=== PATIENT | female | born 1980 | race Caucasian/White ===

== ENCOUNTER → 2016-12-08 | Outpatient (CLI) | payer BC | END | disposition home or self-care (01) | LOC: LABWHC1 09:39 | PROVIDERS: ATTEND Obstetrics & Gynecology | DX: Z13.1 Encounter for screening for diabetes mellitus (principal); Z13.220 Encounter for screening for lipoid disorders | CPT/HCPCS: 36415; 80061; 82947; 84439; 84443 ==

== ENCOUNTER 2019-02-10 08:47 | Day surgery (SDC) | payer BC ==
[2019-02-07 12:31] VITALS: BMI 25.7
[~2019-02-10 08:47] MED LIST: LACTATED RINGERS 1,000 ML IV SCH; LIDOCAINE 1% 20 ML VIAL (10MG/ML) FOR IV START INTRADERMA PRN
[2019-02-10 09:43] VITALS: RESP 16; TEMP 98.1
[2019-02-10] MEDS ORDERED: PROPOFOL 10 MG/ML 20 ML VIAL IV ONE (09:56)
[2019-02-10] MEDS ORDERED: LIDOCAINE 1% INJ 10MG/ML (20 ML MDV) ONE (09:56)
--- NOTE | 2019-02-10 10:29 | P.PCN ---
Date of Procedure: 02/10/19 Procedure(s) Performed: BRIEF HISTORY: Patient is a 38-year-old pleasant female, scheduled for an elective colonoscopy as a part of screening for colorectal neoplasia. She has strong family history of colon cancer diagnosed in her paternal and maternal grandmother as well as first cousin at age 30. Her mother had colon polyps. PROCEDURE PERFORMED: Colonoscopy. PREOPERATIVE DIAGNOSIS: Screening for colon cancer/family history of colon cancer. IV sedation per Anesthesia. PROCEDURE: After informed consent was obtained, the patient, was brought into the endoscopy unit. IV sedation was administered by Anesthesia under continuous monitoring. Digital rectal examination was normal. Initially the Olympus CF-160 flexible video colonoscope was then inserted in the rectum, gradually advanced into the cecum without any difficulty. Careful examination was performed as the scope was gradually being withdrawn. Ileocecal valve and the appendiceal orifice were visualized and appeared normal. Prep was excellent. Mucosa of the cecum, ascending colon, transverse colon, descending colon, sigmoid colon, and rectum appeared normal. Retroflexion was performed in the rectum and no lesions were seen. The patient tolerated the procedure well. IMPRESSION: Normal-appearing colon from rectum to cecum with no evidence of colorectal neoplasia . RECOMMENDATIONS: Findings of this examination were discussed with the patient as well as a family. She was advised to have a repeat screening colonoscopy in 5 years because of the strong family history of colon cancer.
[2019-02-10 10:46] VITALS: BP 115/73; PULSE 96
== END 2019-02-10 11:10 | disposition home or self-care (01) ==
LOC: ORWHC2ENDO 08:47
PROVIDERS: ATTEND Internal Medicine Gastroenterology
DX: Z12.11 Encounter for screening for malignant neoplasm of colon (principal); R14.0 Abdominal distension (gaseous); Z80.0 Family history of malignant neoplasm of digestive organs; Z83.71 Family history of colonic polyps; Z79.3 Long term (current) use of hormonal contraceptives
CPT/HCPCS: 81025; G0105; J2001; J2704; 45378

== ENCOUNTER → 2020-07-03 | Outpatient (CLI) | payer BC ==
--- NOTE | 2020-07-08 08:10 | MM ---
Reason for exam: screening (asymptomatic). Last mammogram was performed 4 years and 8 months ago. History: Family history of breast cancer in maternal grandmother at age 60. Taking hormonal contraceptives for 10 years. Physical Findings: A clinical breast exam by your physician is recommended on an annual basis and results should be correlated with mammographic findings. MG 3D Screening Mammo W/Cad Bilateral CC and MLO view(s) were taken. Prior study comparison: October 22, 2015, mammogram, performed at [facility]. The breast tissue is heterogeneously dense. This may lower the sensitivity of mammography. Asymmetric densities show no persisting abnormality on 3D images in the central left CC view. No significant changes when compared with prior studies. ASSESSMENT: Benign, BI-RAD 2 RECOMMENDATION: Routine screening mammogram of both breasts in 1 year.
== END | disposition home or self-care (01) ==
LOC: RADMAMWWP 13:06
PROVIDERS: ATTEND Obstetrics & Gynecology
DX: Z12.31 Encounter for screening mammogram for malignant neoplasm of breast (principal)
CPT/HCPCS: 77063; 77067

== ENCOUNTER → 2021-03-25 | Outpatient (CLI) | payer BC ==
[2021-03-25 16:17] LABS: HCT 38.4 % (37.2-46.3); HGB 12.2 g/dL (12.0-15.0); MCH 31.4 pg (27.0-32.0); MCHC 31.8 g/dL (32.0-37.0); Mean Platelet Volume 10.9 fL (9.5-12.2); Platelet Count 244 X 10*3/uL (140-440); RBC 3.88 X 10*6/uL (4.10-5.20); RDW 11.9 % (11.5-14.5); WBC 4.48 X 10*3/uL (4.50-10.00)
[2021-03-25 21:26] LABS: African American GFR (CKD) 96.4 (60.0-200.0); Albumin 4.3 g/dL (3.8-4.9); Albumin/Globulin Ratio 1.54 (1.60-3.17); Anion Gap 14.4 mmol/L (4.00-12.00); BUN/Creat Ratio 12.17 Ratio (12.00-20.00); Blood Urea Nitrogen 10.6 mg/dL (9.0-27.0); Calcium 9.5 mg/dL (8.7-10.3); Carbon Dioxide 19.5 mmol/L (21.6-31.8); Chol/HDL Ratio 3.01 Ratio; Globulin 2.8 g/dL (1.6-3.3); HDL Cholesterol 83.8 mg/dL (40.00-60.00); LDL Cholesterol,Calculated 146.6 mg/dL (0.0-131.0); Non-African American GFR(CKD) 83.2 (60.0-200.0); Potassium 4.7 mmol/L (3.5-5.5); T4, Free (Free Thyroxine) 1.03 ng/dL (0.800-1.800); Total Bilirubin 0.6 mg/dL (0.30-1.20); Total Protein 7.1 g/dL (6.2-8.2); VLDL Calculation 21.6 mg/dL (5.00-40.00)
[2021-03-25 21:39] LABS: DHEA Sulfate 70.7 ug/dL (26.0-430.0); Insulin Level 8.3 mIU/mL (3.0-25.0)
[2021-03-26 01:43] LABS: Estradiol 75.7 pg/mL; Follicle Stimulating Hormone 7.7 mIU/mL; Luteinizing Hormone 7.8 mIU/mL
== END | disposition home or self-care (01) ==
LOC: LABWHC1 07:22
PROVIDERS: ATTEND Obstetrics & Gynecology
DX: Z13.220 Encounter for screening for lipoid disorders (principal); Z13.228 Encounter for screening for other metabolic disorders; Z13.29 Encounter for screening for other suspected endocrine disorder; E28.2 Polycystic ovarian syndrome
CPT/HCPCS: 36415; 80053; 80061; 82627; 82670; 83001; 83002; 83036; 83525; 84402; 84439; 84443; 85027

== ENCOUNTER → 2022-05-15 | Outpatient (CLI) | payer BC ==
--- NOTE | 2022-05-18 08:45 | MM ---
Reason for Exam: Screening (asymptomatic). Last mammogram was performed 1 year(s) and 11 month(s) ago. Patient History: Menarche at age 13. First Full-Term at age 26. Premenopausal. Currently using Hormonal Contraceptives, for 10 years. Maternal grandmother had breast cancer, age 60. Last menstrual period: 03/28/2022 Risk Values: Felicita 5 year model risk: 0.7%. NCI Lifetime model risk: 11.0%. Prior Study Comparison: 10/22/2015 Screening Mammogram, [facility]. 07/03/2020 Bilateral Screening Mammogram, [facility]. Tissue Density: The breast tissue is heterogeneously dense. This may lower the sensitivity of mammography. Findings: Analyzed By CAD. There is no suspicious group of microcalcifications or new suspicious mass in either breast. Overall Assessment: Negative, BI-RAD 1 Management: Screening Mammogram of both breasts in 1 year. A clinical breast exam by your physician is recommended on an annual basis and results should be correlated with mammographic findings. Electronically signed and approved by: Camden Garza M.D. Radiologis
== END | disposition home or self-care (01) ==
LOC: RADMAMWWP 10:53
PROVIDERS: ATTEND Obstetrics & Gynecology
DX: Z12.31 Encounter for screening mammogram for malignant neoplasm of breast (principal); Z80.3 Family history of malignant neoplasm of breast
CPT/HCPCS: 77063; 77067

== ENCOUNTER → 2023-06-09 | Outpatient (CLI) | payer BC ==
--- NOTE | 2023-06-09 09:59 | MM ---
Reason for Exam: Screening (asymptomatic). Last screening mammogram was performed 12 month(s) ago. Patient History: Menarche at age 13. First Full-Term at age 26. Premenopausal. Currently using Hormonal Contraceptives, for 10 years. Maternal grandmother had breast cancer, age 60. Risk Values: Felicita 5 year model risk: 0.7%. NCI Lifetime model risk: 10.9%. Prior Study Comparison: 10/22/2015 Screening Mammogram, [facility]. 07/03/2020 Bilateral Screening Mammogram, [facility]. 05/15/2022 Bilateral MG 3D screening mammo w/cad, [facility]. Tissue Density: The breast tissue is heterogeneously dense. This may lower the sensitivity of mammography. Findings: Analyzed By CAD. There is no suspicious group of microcalcifications or new suspicious mass. Overall Assessment: Negative, BI-RAD 1 Management: Screening Mammogram of both breasts in [address] [facility] will attempt to contact patient to return for supplemental views and ultrasound if indicated. Patient should continue monthly self-breast exams. A clinical breast exam by your physician is recommended on an annual basis. This exam should not preclude additional follow-up of suspicious palpable abnormalities. Note on Felicita scores and lifetime risk: 1. A Felicita score greater than 3% is considered moderate risk. If this is the case, consider specialist referral to assess eligibility for a risk reducing agent. 2. If overall lifetime risk for the development of breast cancer is 20% or higher, the patient may qualify for future screening with alternating mammogram and breast MRI. Electronically signed and approved by: Stu Penn DO
== END | disposition home or self-care (01) ==
LOC: RADMAMWWP 09:05
PROVIDERS: ATTEND Obstetrics & Gynecology
DX: Z12.31 Encounter for screening mammogram for malignant neoplasm of breast (principal); Z80.3 Family history of malignant neoplasm of breast
CPT/HCPCS: 77063; 77067